=== PATIENT | male | born 1945 | race Caucasian/White ===

== ENCOUNTER 2018-09-20 09:35 | Inpatient (IN) ==
[2018-09-20] MEDS ORDERED: Ipratropium/Albuterol Neb 3 ML IH ONE ×2 (09:58→11:29)
[2018-09-20] MEDS ORDERED: methylPREDNISolone 125 MG/2 ML VIAL IVP ONE (09:58)
--- NOTE | 2018-09-20 10:02 | Emergency Department Note ---
Disposition Clinical Impression: Bronchitis, Hypoxia Disposition: Admitted As Inpatient Condition: Good Time of Disposition: 13:48 General Adult HPI - General Chief complaint: ED Shortness of Breath/Dyspnea Stated complaint: flu sx Time Seen by Provider: 09/20/18 09:48 Source: patient, family Limitations: no limitations Nursing Notes Reviewed: Yes Vital Signs Reviewed: Yes - History of Present Illness HPI Narrative: Male patient presenting to emergency department with a complaint of things he has the flu. States he has not been feeling well for a little over a week. Does have a sick contact of his had the flu recently. States that he had some head congestion and then has had a cough for the past week. States this is generally how his illnesses go however the cough has not subsided so he was c oncerned and came to the emergency department. Patient was found to be tachypneic tachycardic and hypoxic on arrival here. Actions saturation did raise to the low 90s on 2-4 L. Pt is wheezing throughout. States he has not checked his temperature to know has a fever but denies any chills. Denies any chest pain. Reports that they head cold has subsided at this time. Was previously a smoker but has not smoked in several years. Pain Scale: 0 - Related Data Home Medications Medication Instructions Recorded Confirmed Ascorbate Calcium [Vitamin C] 500 mg PO DAILY 09/20/18 09/20/18 Lisinopril [Zestril] 20 mg PO QAM 09/20/18 09/20/18 Multivit-Min/FA/Lycopen/Lutein 1 tab PO DAILY 09/20/18 09/20/18 [Senior Tabs] Naproxen Sodium [Aleve] 440 mg PO QAM 09/20/18 09/20/18 Vitamin E (Dl,Tocopheryl Acet) 400 unit PO DAILY 09/20/18 09/20/18 [Vitamin E] Allergies Allergy/AdvReac Type Severity Reaction Status Date / Time No Known Allergies Allergy Verified 09/20/18 14:26 All systems ED: reviewed and negative except as stated. Review of Systems: As Per HPI Constitutional: Denies: fever, chills Cardiovascular: Denies: chest pain, syncope Respiratory: Reports: cough. Denies: dyspnea Gastrointestinal: Denies: abdominal pain, nausea, vomiting, diarrhea Past Medical History - Past Medical History Attestation: Yes The following information was validated with the patient. Source: patient Medical history: Reports: hypertension Psychiatric history: Reports: no psych history - Social History Smoking Status: Never smoker Smokeless Tobacco Status: No Alcohol use: Reports: none Drug use: Reports: none Physical Exam - General Limitations: no limitations General appearance: alert, in no apparent distress - Head Head exam: atraumatic, normocephalic, normal inspection - Eye Eye exam: Present: normal appearance, PERRL, EOMI - ENT ENT exam: normal exam, normal oropharynx, mucous membranes moist - Neck Neck exam: Present: normal inspection, full ROM, trachea midline - Chest Chest inspection: Present: normal inspection, symmetric chest wall rise - Respiratory Respiratory exam: Present: other (Tachypneic. Shallow breathing. Wheezing throughout.) - Cardiovascular Cardiovascular exam: Present: tachycardia - Abdominal Exam Abdominal exam: Present: soft, Non-Tender. Absent: tenderness, distention, guarding, rebound, rigidity, organomegaly, Sparks's sign, Rovsing's sign, tenderness at McBurney's Point - Extremities Exam Extremities exam: Present: normal inspection, full ROM, normal capillary refill. Absent: tenderness, pedal edema - Back Exam Back exam: Present: normal inspection, full ROM. Absent: tenderness - Neurological Exam Neurological exam: Present: alert, oriented X3 - Psychiatric Psychiatric exam: Present: normal affect, normal mood - Skin Skin exam: Present: warm, dry, intact, normal color. Absent: rash, cyanosis Course Course Narrative: Patient hypoxic on arrival, tachypneic, with sick contacts of life with the flu. We will get a flu swab basic lab work on patient a chest x-ray. Patient overtly denies any shortness of breath. Denies any chest pain. No history of DVT or PE. Patient with diffuse wheezing throughout. We will provide patient with steroids as well as triple DuoNeb. We will also get a cxr.. Patient does have wheezing throughout. We did provide patient with magnesium while here as well as triple DuoNeb and steroids. - Reevaluation(s) Reevaluation #1: Chest x-ray concerning for bronchitis. We did provide patient with antibodies to this time. He is hypoxic while resting. He again overtly denies any chest pain or shortness of breath. We will admit patient to the hospital for his hypoxemia and bronchitis. We did discuss this patient with the hospitalist and will order a d-dimer with them to follow. Patient is agreeable with admission at this time. He again appears well. Vital Signs Temperature 98.9 F 09/20/18 09:43 Pulse Rate 111 09/20/18 09:43 Respiratory Rate 22 09/20/18 09:43 Blood Pressure 149/106 09/20/18 09:43 O2 Sat by Pulse Oximetry 83 09/20/18 09:43 Temperature 98.9 F 09/20/18 09:43 Pulse Rate 100 09/20/18 13:37 Respiratory Rate 19 09/20/18 13:37 Blood Pressure 125/89 09/20/18 13:37 O2 Sat by Pulse Oximetry 93 09/20/18 13:37 Oxygen Delivery Oxygen Delivery Nasal Cannula Medical Decision Making - Medical Records Medical records reviewed: Yes I reviewed the patient's medical records. - Lab Data Lab results reviewed: Yes I reviewed the patient's lab results. Result diagrams: 09/20/18 10:02 09/20/18 10:02 Lab Results 09/20/18 09/20/18 09/20/18 Range/Units 10:02 10:02 10:02 WBC 12.6 H (4.3-11.1) K/mcL RBC 4.24 (4.19-5.50) M/mcL Hgb 13.4 (12.9-16.9) g/dL Hct 41.9 (37.5-50.1) % MCV 98.8 (83.0-100.0) fL MCH 31.6 (28.0-33.3) pg MCHC 32.0 (31.6-35.5) g/dL RDW 15.3 H (11.5-14.5) % Plt Count 387 (140-400) K/mcL MPV 9.2 L (9.4-12.4) fL Immature Gran % 0.6 (0-4) % Seg Neutrophils % 75.3 % Lymphocytes % 14.6 % Monocytes % 7.4 % Eosinophils % 1.7 % Basophils % 0.4 % Neutrophils # 9.5 H (1.6-8.9) K/mcL Lymphocytes # 1.9 (0.6-4.6) K/mcL Monocytes # 0.9 (0.0-1.3) K/mcL Eosinophils # 0.2 (0.0-0.6) K/mcL Basophils # 0.1 (0.0-0.2) K/mcL Sodium 141 (136-145) mEq/L Potassium 4.1 (3.5-5.1) mEq/L Chloride 102 (98-107) mEq/L Carbon Dioxide 34 H (23-29) mEq/L BUN 21 (8-23) mg/dL Creatinine 0.63 L (0.70-1.30) mg/dL Est GFR ( Amer) > 60 (> 60) Est GFR (Non-Af Amer) > 60 (> 60) BUN/Creatinine Ratio 33 H (6-26) Glucose 125 H (70-105) mg/dL Calculated Osmolality 296 (280-300) Lactic Acid 0.7 (0.5-2.2) mmol/L Calcium 9.6 (8.6-10.3) mg/dL Phosphorus 2.2 L (2.7-4.5) mg/dL Magnesium 2.0 (1.6-2.6) mg/dL Troponin I < 0.03 (< 0.04) ng/mL B-Natriuretic Peptide (Less than 100) pg/mL Urine Color (Yellow) Urine Clarity (Clear) Urine pH (5.0-8.0) pH Units Ur Specific [place] (1.010-1.025) Urine Protein (Neg-Trace) mg/dL Urine Glucose (UA) (Normal) mg/dL Urine Ketones (Negative) mg/dL Urine Blood (Negative) Urine Nitrite (Negative) Urine Bilirubin (Negative) Urine Urobilinogen (Normal) mg/dL Ur Leukocyte Esterase (Negative) Ur Culture Indicated? (NO) 09/20/18 09/20/18 Range/Units 10:02 11:58 WBC (4.3-11.1) K/mcL RBC (4.19-5.50) M/mcL Hgb (12.9-16.9) g/dL Hct (37.5-50.1) % MCV (83.0-100.0) fL MCH (28.0-33.3) pg MCHC (31.6-35.5) g/dL RDW (11.5-14.5) % Plt Count (140-400) K/mcL MPV (9.4-12.4) fL Immature Gran % (0-4) % Seg Neutrophils % % Lymphocytes % % Monocytes % % Eosinophils % % Basophils % % Neutrophils # (1.6-8.9) K/mcL Lymphocytes # (0.6-4.6) K/mcL Monocytes # (0.0-1.3) K/mcL Eosinophils # (0.0-0.6) K/mcL Basophils # (0.0-0.2) K/mcL Sodium (136-145) mEq/L Potassium (3.5-5.1) mEq/L Chloride (98-107) mEq/L Carbon Dioxide (23-29) mEq/L BUN (8-23) mg/dL Creatinine (0.70-1.30) mg/dL Est GFR ( Amer) (> 60) Est GFR (Non-Af Amer) (> 60) BUN/Creatinine Ratio (6-26) Glucose (70-105) mg/dL Calculated Osmolality (280-300) Lactic Acid (0.5-2.2) mmol/L Calcium (8.6-10.3) mg/dL Phosphorus (2.7-4.5) mg/dL Magnesium (1.6-2.6) mg/dL Troponin I (< 0.04) ng/mL B-Natriuretic Peptide 37 (Less than 100) pg/mL Urine Color Yellow (Yellow) Urine Clarity Clear (Clear) Urine pH 7.0 (5.0-8.0) pH Units Ur Specific [place] 1.017 (1.010-1.025) Urine Protein Trace (Neg-Trace) mg/dL Urine Glucose (UA) Normal (Normal) mg/dL Urine Ketones Negative (Negative) mg/dL Urine Blood Negative (Negative) Urine Nitrite Negative (Negative) Urine Bilirubin Negative (Negative) Urine Urobilinogen Normal (Normal) mg/dL Ur Leukocyte Esterase Negative (Negative) Ur Culture Indicated? NO (NO) - Radiology Data Radiology results reviewed: Yes I reviewed the patient's radiology results. Chest X-Ray 09/20/18 09:49 IMPRESSION: Bronchial wall thickening bilaterally, greatest at the bases. Consider bronchitis. Follow-up to resolution. D/ / Eliazar Medel MD / Eliazar Medel MD Interpreting Provider: Eliazar Medel MD - EKG Data EKG #1 EKG attestation: Yes I reviewed and interpreted this EKG. EKG results narrative: Sinus tachycardia at a rate of 103. ND interval is 184. QRS duration is 95. QT is 328. QTC is 4:30. Good R-wave progression. No signs of acute ischemia. The sensitivity of your chronic. Attestation Statement - Attestation Attestation: I, Lon Colon, examined this patient and my medical decision-making was reviewed with the [employer]/PA/Advanced Practice Nurse/Resident Physician. I agree with the documented findings, disposition and treatment plan as described except to the extent set forth below. 72-year-old male presents emergency Department with concerns of generalized malaise, weakness, fatigue. Patient noted that he was hypoxic at home. He is hypoxic in triage. If this improved with nasal cannula oxygen supplementation in the emergency department. He has a history of COPD. He states he had a viral upper respiratory infection within the past few weeks and he had progressively worsened with this dyspnea. Patient denies fever over the past 24-48 hours. He has not taken Tylenol or ibuprofen prior to arrival to the emergency department. Chest x-ray does not show evidence of acute infiltrate. Patient has wheezing the bilateral posterior lung talbot. He did improve mildly with 2 nebs emergency department. EKG did not show evidence of STEMI. I reviewed the EKG with the resident and agree with the interpretation. Patient will be admitted to the hospitalist for further care and evaluation secondary to his hypoxia and likely COPD exacerbation versus bronchitis.
[2018-09-20] MEDS ORDERED: Azithromycin 500 MG in D5% in Water 250 ML IVPB ONE (10:04)
[2018-09-20] MEDS ORDERED: cefTRIAXone 1,000 MG in Water for inj. (sterile) 10 ML IVP ONE (10:04)
[2018-09-20] MEDS ORDERED: 0.9 % Sodium Chloride 500 ML IVC ONE (10:06)
[2018-09-20 10:15] LABS: Basophils # 0.1 K/mcL (0.0-0.2); Basophils % 0.4 %; Eosinophils # 0.2 K/mcL (0.0-0.6); Eosinophils % 1.7 %; Hematocrit 41.9 % (37.5-50.1); Hemoglobin 13.4 g/dL (12.9-16.9); Immature Granulocytes % 0.6 % (0-4); Lymphocytes # 1.9 K/mcL (0.6-4.6); Lymphocytes % 14.6 %; Mean Corpuscular Hemoglobin 31.6 pg (28.0-33.3); Mean Corpuscular Volume 98.8 fL (83.0-100.0); Mean Platelet Volume 9.2 fL (9.4-12.4); Monocytes # 0.9 K/mcL (0.0-1.3); Monocytes % 7.4 %; Neutrophils # 9.5 K/mcL (1.6-8.9); Platelet Count 387 K/mcL (140-400); Red Blood Count 4.24 M/mcL (4.19-5.50); Red Cell Distribution Width 15.3 % (11.5-14.5); Segmented Neutrophils % 75.3 %; White Blood Count 12.6 K/mcL (4.3-11.1)
[2018-09-20] MEDS: 0.9 % Sodium Chloride 1,000 ML IVC SCH ×2 (10:25→11:25)
[2018-09-20 10:36] LABS: BUN/Creatinine Ratio 33 (6-26); Blood Urea Nitrogen 21 mg/dL (8-23); Calcium 9.6 mg/dL (8.6-10.3); Carbon Dioxide 34 mEq/L (23-29); Chloride 102 mEq/L (98-107); Glucose 125 mg/dL (70-105); Osmolality,Calculated 296 (280-300); Phosphorous 2.2 mg/dL (2.7-4.5); Potassium 4.1 mEq/L (3.5-5.1); Sodium 141 mEq/L (136-145); eGFR For African Americans > 60 (> 60); eGFR For Non-African Americans > 60 (> 60)
[2018-09-20 10:37] LABS: Troponin I < 0.03 ng/mL (< 0.04)
[2018-09-20 12:44] LABS: Bilirubin,Urine Negative (Negative); Blood,Urine Negative (Negative); Clarity,Urine Clear (Clear); Color,Urine Yellow (Yellow); Glucose,Urine (UA) Normal (Normal); Ketones,Urine Negative (Negative); Leukocyte Esterase,Urine Negative (Negative); Nitrite,Urine Negative (Negative); Protein,Urine Trace mg/dL (Neg-Trace); Specific Gravity,Urine 1.017 (1.010-1.025); Urobilinogen,Urine Normal (Normal)
[2018-09-20] MEDS ORDERED: Isovue-370 500 ML BOTTLE IVP ONE (14:50)
--- NOTE | 2018-09-20 14:55 | Internal Med History&Physical ---
<MacariodgJesus Manuelirma - Last Filed: 09/20/18 15:31> Date of Encounter: 09/20/18 Time of Encounter: 14:53 Internal Medicine - H&P: HPI Chief complaint: shortness of breath Admitted From: Emergency Dept Plans for Post Hospital Care: Home History of present illness: Mr. Trejo is a 72 year old male with PMHx of HTN. History was obtained from patient and his family (daughter in law). He does not have a family doctor and is non compliant with seeing a family doctor. He used to be on home oxygen but had it taken away by medicare due to noncompliance with it. He has 80 pack year smoking history and quit about 3 years ago. He was never diagnosed with COPD in the past, however, because he never goes to the doctor. He has family history of emphysema. Patient has baseline shortness of breath with minimal exertion that is present all the time. Over the past week, his shortness of breath has increased more than normal. His lives in a long-term permanently for dementia and was recently diagnosed with pneumonia. He recently did go to visit his in the long-term. He states that he was checking his oxygen saturations at home and it was high 80s-low 90s. he denies nausea, vomiting, diarrhea, fevers, chills, chest pain, hematochezia, melena, hematuria. he denies pleuritic chest pain, long travel, long plane or car rides. he denies history of malignancy. Per daughter in law, patient has long history of non compliance with going to see the doctor, and non compliance with his home oxygen use, which has been taken away from him. Past Med Surg Social Fam HX - Past Medical History Medical history: hypertension Psychiatric history: no psych history - Social History Smoking Status: Never smoker Smokeless Tobacco Status: No Alcohol use: none Drug use: none - Family History Father Living Status: Age at : 68 Cause of : cancer Hx Family Respiratory Disorders: Yes Hx Family Cancer: Yes Internal Medicine - H&P: Meds Ascorbate Calcium [Vitamin C] 500 mg PO DAILY 09/20/18 [History] Lisinopril [Zestril] 20 mg PO QAM 09/20/18 [History] Multivit-Min/FA/Lycopen/Lutein [Senior Tabs] 1 tab PO DAILY 09/20/18 [History] Naproxen Sodium [Aleve] 440 mg PO QAM 09/20/18 [History] Vitamin E (Dl,Tocopheryl Acet) [Vitamin E] 400 unit PO DAILY 09/20/18 [History] Allergy/AdvReac Type Severity Reaction Status Date / Time No Known Allergies Allergy Verified 09/20/18 14:26 All Systems PM: A 10-system review of systems was performed and is negative for pertinent findings except as documented above in the HPI. - Constitutional Constitutional: as per HPI - EENT Eyes: as per HPI Ears: as per HPI Nose, mouth and throat: as per HPI - Breasts Breasts: as per HPI - Cardiovascular Cardiovascular ROS IM: as per HPI - Respiratory Respiratory: as per HPI - Gastrointestinal Gastrointestinal: as per HPI - Genitourinary Genitourinary ROS male: as per HPI - Musculoskeletal Musculoskeletal ROS IM: as per HPI - Integumentary Integumentary IM: as per HPI - Neurological Neurological ROS: as per HPI - Psychiatric Psychiatric: as per HPI - Endocrine Endocrine IM: as per HPI - Hematologic/Lymphatic Hematologic/Lymphatic: as per HPI - Allergic/Immunologic Allergic/Immunologic: as per HPI - Constitutional Vitals: Temp Pulse Resp BP Pulse Ox 98.9 F 100 19 125/89 93 09/20/18 09:43 09/20/18 13:37 09/20/18 13:37 09/20/18 13:37 09/20/18 13:37 General appearance: Present: A&O X 3, no acute distress, answers questions appropriately Exam: alert and oriented x3, pleasant, no acute distress - Head Head exam: Present: atraumatic, normocephalic - Neck Neck exam general surgery: Present: supple, trachea midline - Respiratory Additional comments: overall decreased breath sounds with wheezing present. - Cardiovascular Cardiovascular exam: Present: RRR, +S1, +S2. Absent: gallop, rubs, systolic murmur - GI/Abdominal GI/Abdominal exam: Present: normal bowel sounds, soft. Absent: distended, tenderness - Extremities Exam Extremities exam: Absent: cyanotic, pedal edema - Neurological Exam Neurological exam: Present: alert, oriented X3, no focal deficits - Psychiatric Psychiatric exam: Present: normal affect, normal mood - Skin Skin exam: Present: intact Internal Med - H&P Results - Labs CBC & Chem 7: 09/20/18 10:02 09/20/18 10:02 Labs: Short CBC 09/20/18 Range/Units 10:02 WBC 12.6 H (4.3-11.1) K/mcL Hgb 13.4 (12.9-16.9) g/dL Hct 41.9 (37.5-50.1) % Plt Count 387 (140-400) K/mcL Neutrophils # 9.5 H (1.6-8.9) K/mcL BMP 09/20/18 10:02 Sodium 141 Potassium 4.1 Chloride 102 Carbon Dioxide 34 H BUN 21 Creatinine 0.63 L Glucose 125 H Calcium 9.6 Cardiac Enzymes 09/20/18 Range/Units 10:02 Troponin I < 0.03 (< 0.04) ng/mL Urine 09/20/18 Range/Units 11:58 Urine Color Yellow (Yellow) Urine Clarity Clear (Clear) Urine pH 7.0 (5.0-8.0) pH Units Ur Specific [place] 1.017 (1.010-1.025) Urine Protein Trace (Neg-Trace) mg/dL Urine Glucose (UA) Normal (Normal) mg/dL - Impressions ITS Impressions Chest X-Ray 09/20/18 09:49 IMPRESSION: Bronchial wall thickening bilaterally, greatest at the bases. Consider bronchitis. Follow-up to resolution. D/ / Eliazar Medel MD / Eliazar Medel MD Interpreting Provider: Eliazar Medel MD - Assessment and Plan (1) COPD exacerbation Current Visit: Yes Status: Acute Assessment and plan: 72M with history of 80 pack year tobacco use, quit smoking a few years ago. does not have family doc. was on oxygen in the past but had it taken away due to non compliance. Has extensive history of baseline shortness of breath with minimal exertion that has increased. visited in long-term recently, who was diagnosed with pneumonia. CXR significant for bronchitis. CXR shows increased lung volumes-suspect obstructive process. Plan: will treat as COPD exacerbation scheduled DuoNebs azithromycin day 1 methylprednisolone (2) Bronchitis Current Visit: Yes Status: Acute Assessment and plan: plan as above (3) Hypoxia Current Visit: Yes Status: Acute Assessment and plan: plan as above (4) Hypertension Current Visit: Yes Status: Acute Assessment and plan: continue lisinopril Qualifiers: Hypertension type: essential hypertension Qualified Code(s): I10 - Essential (primary) hypertension (5) DVT prophylaxis Current Visit: Yes Status: Acute Assessment and plan: heparin SQ - Time Spent With Patient Total time spent is greater than 50% in coordination of care (as documented) at patient's floor/unit and/or counseling patient: <Karen Sandoval - Last Filed: 09/21/18 11:49> Date of Encounter: 09/20/18 Internal Medicine - H&P: HPI History of present illness: Mr. Trejo is a 72 year old male All Systems PM: A 10-system review of systems was performed and is negative for pertinent findings except as documented above in the HPI. - Constitutional Vitals: Temp Pulse Resp BP Pulse Ox 97.8 F 97 14 116/73 89 09/21/18 11:17 09/21/18 11:17 09/21/18 11:17 09/21/18 11:17 09/21/18 11:17 Internal Med - H&P Results - Labs CBC & Chem 7: 09/21/18 04:58 09/21/18 04:58 Labs: Short CBC 09/21/18 Range/Units 04:58 WBC 11.5 H (4.3-11.1) K/mcL Hgb 11.6 L D (12.9-16.9) g/dL Hct 36.0 L (37.5-50.1) % Plt Count 358 (140-400) K/mcL Neutrophils # 10.2 H (1.6-8.9) K/mcL BMP 09/21/18 04:58 Sodium 142 Potassium 4.3 Chloride 102 Carbon Dioxide 31 H BUN 23 Creatinine 0.61 L Glucose 171 H Calcium 8.9 Urine 09/20/18 Range/Units 11:58 Urine Color Yellow (Yellow) Urine Clarity Clear (Clear) Urine pH 7.0 (5.0-8.0) pH Units Ur Specific [place] 1.017 (1.010-1.025) Urine Protein Trace (Neg-Trace) mg/dL Urine Glucose (UA) Normal (Normal) mg/dL - Impressions ITS Impressions Chest X-Ray 09/20/18 09:49 IMPRESSION: Bronchial wall thickening bilaterally, greatest at the bases. Consider bronchitis. Follow-up to resolution. D/ / Eliazar Medel MD / Eliazar Medel MD Interpreting Provider: Eliazar Medel MD Chest CTA 09/20/18 14:50 IMPRESSION: No evidence of pulmonary embolism. Small to moderate areas of pneumonia in the posterior segment of the right upper lobe and posterior base of the right lower lobe. Mild emphysematous changes. [id number] bronchial wall thickening consistent with acute or chronic bronchitis. No finding worrisome for malignancy seen. D/ / Dimitry Butts MD / Dimitry Butts MD Interpreting Provider: Dimitry Butts MD - Time Spent With Patient Total time spent is greater than 50% in coordination of care (as documented) at patient's floor/unit and/or counseling patient: - Attending Attestation I have personally seen, examined, and been fully involved in the management of this patient with the resident. I confirm the history, exam, assessment, and plan discussed with the resident.
[2018-09-20] MEDS ORDERED: Naloxone 0.4 MG/ML INJ IVP PRN (15:33)
[2018-09-20] MEDS ORDERED: Acetaminophen 325 MG TABLET PO PRN (15:33)
[2018-09-20] MEDS ORDERED: Ondansetron 4 MG/2 ML VIAL IVP PRN (15:33)
[2018-09-20] MEDS: Ipratropium/Albuterol Neb 3 ML IH SCH ×3 (16:24→23:24)
[2018-09-20] MEDS: methylPREDNISolone 125 MG/2 ML VIAL IVP SCH ×2 (18:05→22:57)
[2018-09-20] MEDS: *HR* Heparin 5,000 UNIT/ML VIAL SQ SCH (18:06)
[2018-09-21] MEDS: Ipratropium/Albuterol Neb 3 ML IH SCH ×6 (03:53→23:21)
[2018-09-21] MEDS: *HR* Heparin 5,000 UNIT/ML VIAL SQ SCH ×2 (05:06→16:48)
[2018-09-21 05:24] LABS: Basophils % 0.1 %; Immature Granulocytes % 0.4 % (0-4); Lymphocytes % 8.9 %; Mean Corpuscular HGB Conc 32.2 g/dL (31.6-35.5); Mean Corpuscular Hemoglobin 32.3 pg (28.0-33.3); Mean Corpuscular Volume 100.3 fL (83.0-100.0); Mean Platelet Volume 9.3 fL (9.4-12.4); Monocytes # 0.3 K/mcL (0.0-1.3); Monocytes % 2.2 %; Neutrophils # 10.2 K/mcL (1.6-8.9); Platelet Count 358 K/mcL (140-400); Red Blood Count 3.59 M/mcL (4.19-5.50); Red Cell Distribution Width 15.5 % (11.5-14.5); Segmented Neutrophils % 88.4 %; White Blood Count 11.5 K/mcL (4.3-11.1)
[2018-09-21 05:25] LABS: Hemoglobin 11.6 g/dL (12.9-16.9)
[2018-09-21 05:50] LABS: BUN/Creatinine Ratio 38 (6-26); Blood Urea Nitrogen 23 mg/dL (8-23); Calcium 8.9 mg/dL (8.6-10.3); Carbon Dioxide 31 mEq/L (23-29); Chloride 102 mEq/L (98-107); Glucose 171 mg/dL (70-105); Magnesium 2.3 mg/dL (1.6-2.6); Osmolality,Calculated 302 (280-300); Phosphorous 2.6 mg/dL (2.7-4.5); Potassium 4.3 mEq/L (3.5-5.1); Sodium 142 mEq/L (136-145); eGFR For African Americans > 60 (> 60); eGFR For Non-African Americans > 60 (> 60)
[2018-09-21] MEDS: cefTRIAXone 1,000 MG in Water for inj. (sterile) 10 ML IVPB SCH (09:29)
[2018-09-21] MEDS: methylPREDNISolone 125 MG/2 ML VIAL IVP SCH ×3 (09:30→19:15)
[2018-09-21] MEDS: Azithromycin 500 MG in D5% in Water 250 ML IVPB SCH (09:30)
--- NOTE | 2018-09-21 14:21 | Internal Med Progress Note ---
Hospitalist Progress Note - Encounter Date of Encounter: 09/21/18 Time of Encounter: 09:20 - Subjective Interval History: When seen today patient was resting comfortably in his bed. He says his breathing is considerably improved from admission time. Denies any chest pain. Denies any cough or fever. Denies any lower extremity swelling. Denies any abd ominal pain, nausea, or vomiting. - Exam Vitals: Temp Pulse Resp BP Pulse Ox 97.8 F 97 14 116/73 89 09/21/18 11:17 09/21/18 11:17 09/21/18 11:17 09/21/18 11:17 09/21/18 11:17 Exam: GENERAL APPEARANCE: Well developed, well nourished, alert and cooperative, and appears to be in no acute distress. HEAD: normocephalic. EYES: vision is grossly intact. EARS: hearing grossly intact. NOSE: No nasal discharge. THROAT: Oral cavity and pharynx normal. No inflammation, swelling, exudate, or lesions. NECK: Neck supple, non-tender without lymphadenopathy, masses or thyromegaly. CARDIAC: Normal S1 and S2. No S3, S4 or murmurs. Rhythm is regular. There is no peripheral edema, cyanosis or pallor. Extremities are warm and well perfused. Capillary refill is less than 2 seconds. No carotid bruits. LUNGS: Clear to auscultation and percussion without rales, rhonchi, wheezing or diminished breath sounds. ABDOMEN: Positive bowel sounds. Soft, nondistended, nontender. No guarding or rebound. No masses. MUSKULOSKELETAL: Adequately aligned spine. ROM intact spine and extremities. No joint erythema or tenderness. Normal muscular development. BACK: Examination of the spine reveals normal gait and posture, no spinal deformity, symmetry of spinal muscles, without tenderness, decreased range of m otion or muscular spasm. EXTREMITIES: No significant deformity or joint abnormality. No edema. Peripheral pulses intact. No varicosities. LOWER EXTREMITY: Examination of both feet reveals all toes to be normal in size and symmetry, normal range of motion, normal sensation with distal capillary filling of less than 2 seconds without tenderness, swelling, discoloration, nodules, weakness or deformity. SKIN: Skin normal color, texture and turgor with no lesions or eruptions. PSYCHIATRIC: The mental examination revealed the patient was oriented to person, place, and time. - Assessment and Plan (1) CAP (community acquired pneumonia) Current Visit: Yes Status: Acute Assessment and Plan: Complain of shortness of breath upon arrival. Admits to sick contact in who is currently diagnosed with pneumonia. Chest x-ray revealed bronchial wall thickening bilaterally which were more pronounced at the bases. Chest CTA did not reveal any pulmonary embolism however showed signs of pneumonia in the right upper lobe in the right lower lobe. Blood cultures were taken. Patient was subsequently started on azithromycin and Rocephin. White blood cell count has been downtrending since admission, currently at 11.5. Patient has been afebrile. Vital signs stable. Plan: - C/W day #2 of Azithromycin. - C/W day #2 of Rocephin. - Blood cultures pending. - Continue to monitor vitals. - Supplemental O2. (2) COPD exacerbation Current Visit: Yes Status: Acute Assessment and Plan: 80 pack year tobacco use, quit smoking a few years ago. Was on oxygen in the past but had it taken away due to non compliance. Has extensive history of baseline shortness of breath with minimal exertion that has increased. CXR significant for bronchitis. Chest CTA showed evidence of PNA in R lung. Plan: - scheduled DuoNebs - azithromycin day 2 - methylprednisolone day - suplemental O2. (3) Hypoxia Current Visit: Yes Status: Acute Assessment and Plan: Due to PNA and COPD exacerbation. O2 level currently at acceptable range for COPD patient. Plan: - C/W duonebs. - C/W antibiotics. - C/W IV steroids. - C/W O2 supplement. (4) Hypertension Current Visit: Yes Status: Acute Assessment and Plan: BP controlled. Plan: - C/W lisinopril. DVT Prophylaxis: Heparin SQ. - Time Spent with Patient Total time spent is greater than 50% in coordination of care (as documented) at patient's floor/unit and/or counseling patient: Internal Medicine: Result - Labs CBC & Chem 7: 09/21/18 04:58 09/21/18 04:58 Labs: Short CBC 09/21/18 Range/Units 04:58 WBC 11.5 H (4.3-11.1) K/mcL Hgb 11.6 L D (12.9-16.9) g/dL Hct 36.0 L (37.5-50.1) % Plt Count 358 (140-400) K/mcL Neutrophils # 10.2 H (1.6-8.9) K/mcL BMP 09/21/18 04:58 Sodium 142 Potassium 4.3 Chloride 102 Carbon Dioxide 31 H BUN 23 Creatinine 0.61 L Glucose 171 H Calcium 8.9 - ABG Interpretation ABG results: PT/INR, D-dimer 1146 ng/mLFEU (0-500) H 09/20/18 14:11 - Impressions Impressions Chest CTA 09/20/18 14:50 IMPRESSION: No evidence of pulmonary embolism. Small to moderate areas of pneumonia in the posterior segment of the right upper lobe and posterior base of the right lower lobe. Mild emphysematous changes. [id number] bronchial wall thickening consistent with acute or chronic bronchitis. No finding worrisome for malignancy seen. D/ / Dimitry Butts MD / Dimitry Butts MD Interpreting Provider: Dimitry Butts MD Consult Discharge Plan - Plan Referrals: Tatiana Ward, [employer] [Primary Care Provider] - (4) Hypertension Qualifiers: Hypertension type: essential hypertension Qualified Code(s): I10 - Essential (primary) hypertension
[2018-09-22] MEDS: Ipratropium/Albuterol Neb 3 ML IH SCH ×6 (03:59→23:45)
[2018-09-22] MEDS: *HR* Heparin 5,000 UNIT/ML VIAL SQ SCH ×2 (05:09→16:59)
[2018-09-22] MEDS: methylPREDNISolone 125 MG/2 ML VIAL IVP SCH ×2 (05:09→17:00)
[2018-09-22 06:14] LABS: Hematocrit 38.6 % (37.5-50.1); Mean Corpuscular HGB Conc 31.1 g/dL (31.6-35.5); Mean Corpuscular Hemoglobin 31.3 pg (28.0-33.3); Mean Corpuscular Volume 100.8 fL (83.0-100.0); Mean Platelet Volume 9.4 fL (9.4-12.4); Platelet Count 443 K/mcL (140-400); Red Blood Count 3.83 M/mcL (4.19-5.50); Red Cell Distribution Width 15.8 % (11.5-14.5); White Blood Count 14.4 K/mcL (4.3-11.1)
[2018-09-22 06:34] LABS: BUN/Creatinine Ratio 45 (6-26); Blood Urea Nitrogen 36 mg/dL (8-23); Calcium 9.3 mg/dL (8.6-10.3); Carbon Dioxide 35 mEq/L (23-29); Chloride 101 mEq/L (98-107); Glucose 110 mg/dL (70-105); Magnesium 2.2 mg/dL (1.6-2.6); Osmolality,Calculated 307 (280-300); Potassium 4.1 mEq/L (3.5-5.1); Sodium 144 mEq/L (136-145); eGFR For African Americans > 60 (> 60); eGFR For Non-African Americans > 60 (> 60)
[2018-09-22] MEDS: Lisinopril 20 MG TABLET PO SCH (11:03)
[2018-09-22] MEDS: Azithromycin 500 MG in D5% in Water 250 ML IVPB SCH (11:19)
--- NOTE | 2018-09-22 11:48 | Internal Med Progress Note ---
<Reba Berg - Last Filed: 09/22/18 17:22> Hospitalist Progress Note - Encounter Date of Encounter: 09/22/18 Time of Encounter: 10:00 - Subjective Interval History: Sitting in bedside chair, eating breakfast. Pt feels better overall, cough is at baseline. Feels his breathing has improved since he presented, supplemental oxy gen has been helpful. He denies chest pain, heart palpitations, abdominal pain, fevers, chills, nausea, vomiting. Still reporting some weakness and is interested in going to inpatient rehab or swing bed on discharge to get stronger. - Exam Vitals: Temp Pulse Resp BP Pulse Ox 98.3 F 96 16 135/82 92 09/22/18 07:34 09/22/18 07:34 09/22/18 11:22 09/22/18 07:34 09/22/18 11:22 Exam: General: No acute distress, seated comfortably at bedside HEENT: head normocephalic/atraumatic, EOMI, PERRL, sclera anicteric Neck: Supple Cardio: regular rhythm, mild tachycardia, no murmurs, +S1/S2 Pulm: CTAB, diminished breath sounds bilaterally, no wheezing/rhonchi/rales. Normal respiratory effort, on 3.5L NC Abdomen: soft, nontender, active bowel sounds Extremities: No LE edema, no cyanosis, no clubbing Neuro: AAOx3, no focal deficits, no speech deficit, CN II-XII grossly intact, moves all extremities spontaneously MSK: Strength 5/5 throughout, no visible deformities, no joint swelling Skin: clean, dry, intact, no visible rashes Psych: Appropriate mood and affect - Assessment and Plan (1) CAP (community acquired pneumonia) Current Visit: Yes Status: Acute Assessment and Plan: Improving. Afebrile since admission. Increase in WBC attributed to IV steroids. CXR shows bronchial wall thickening bilaterally, especially at bases--likely represents bronchitis. CTA chest shows small to moderate areas of pneumonia in right upper lobe and lower lobe; mild to moderate bronchial wall thickening again noted; no evidence for PE Influenza A/B negative Sputum culture pending collection BCx show NGTD Continue azithromycin and Rocephin, anticipate transitioning to PO abx tomorrow Anticipate pt will continue to improve as PNA resolves Last dose solumedrol tonight, transition to PO prednisone in morning Continue supplemental oxygen, scheduled duonebs (2) Acute and chronic respiratory failure with hypoxia Current Visit: Yes Status: Acute Assessment and Plan: Acute on chronic resiratory failure with hypoxia secondary to PNA in setting of COPD with exacerbation. Requiring 3.5L oxygen by NC, maintaining adequate SpO2 low 90's. 6 minute walk test for O2 qualification. Continue supplemental oxygen, continue scheduled duonebs. (3) COPD exacerbation Current Visit: Yes Status: Acute Assessment and Plan: As above. Previously prescribed home O2, but was discontinued d/t noncompliance. No home bronchodilators or maintenance inhalers, pt would benefit from these and will prescribe on discharge. (4) Hypertension Current Visit: Yes Status: Acute Assessment and Plan: Well controlled on home dose lisinopril. - Time Spent with Patient Total time spent is greater than 50% in coordination of care (as documented) at patient's floor/unit and/or counseling patient: Internal Medicine: Result - Labs CBC & Chem 7: 09/22/18 05:01 09/22/18 05:01 Labs: Short CBC 09/22/18 Range/Units 05:01 WBC 14.4 H (4.3-11.1) K/mcL Hgb 12.0 L (12.9-16.9) g/dL Hct 38.6 (37.5-50.1) % Plt Count 443 H (140-400) K/mcL BMP 09/22/18 05:01 Sodium 144 Potassium 4.1 Chloride 101 Carbon Dioxide 35 H BUN 36 H Creatinine 0.80 Glucose 110 H Calcium 9.3 - ABG Interpretation ABG results: PT/INR, D-dimer 1146 ng/mLFEU (0-500) H 09/20/18 14:11 Consult Discharge Plan - Plan Referrals: Tatiana Ward, [employer] [Primary Care Provider] - <Peter Nuñez - Last Filed: 09/22/18 18:15> Hospitalist Progress Note - Encounter Date of Encounter: 09/22/18 - Exam Vitals: Temp Pulse Resp BP Pulse Ox 98.2 F 105 15 102/69 93 09/22/18 17:22 09/22/18 17:22 09/22/18 17:22 09/22/18 17:22 09/22/18 17:22 - Time Spent with Patient Total time spent is greater than 50% in coordination of care (as documented) at patient's floor/unit and/or counseling patient: Internal Medicine: Result - Labs CBC & Chem 7: 09/22/18 05:01 09/22/18 05:01 Labs: Short CBC 09/22/18 Range/Units 05:01 WBC 14.4 H (4.3-11.1) K/mcL Hgb 12.0 L (12.9-16.9) g/dL Hct 38.6 (37.5-50.1) % Plt Count 443 H (140-400) K/mcL BMP 09/22/18 05:01 Sodium 144 Potassium 4.1 Chloride 101 Carbon Dioxide 35 H BUN 36 H Creatinine 0.80 Glucose 110 H Calcium 9.3 - ABG Interpretation ABG results: PT/INR, D-dimer 1146 ng/mLFEU (0-500) H 09/20/18 14:11 - Attending Attestation I examined this patient and my medical decision-making was reviewed with the Resident Physician. I agree with the documented findings, disposition and treatment plan as described except to the extent set forth below. Patient seen and examined at bedside. Patient reports that he feels extremely weak today. He feels like his breathing is improving. On exam lungs are diminished bilaterally but no rales, wheezes appreciated. Acute respiratory failure with hypoxia: Patient does not require oxygen normally at home. Continue oxygen supplementation and wean down as tolerated. Pneumonia: Treating for community-acquired pneumonia, appears to be covering well, continue ceftriaxone and azithromycin. COPD exacerbation: Transition to by mouth steroids tomorrow. <Reba Berg - Last Filed: 09/22/18 17:22> (1) CAP (community acquired pneumonia) Qualifiers: Laterality: right Lung location: upper lobe of lung Qualified Code(s): J18.1 - Lobar pneumonia, unspecified organism (4) Hypertension Qualifiers: Hypertension type: essential hypertension Qualified Code(s): I10 - Essential (primary) hypertension
[2018-09-22] MEDS: cefTRIAXone 1,000 MG in Water for inj. (sterile) 10 ML IVPB SCH (12:08)
--- NOTE | 2018-09-22 12:40 | Electrocardiograph Report ---
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
[2018-09-23] MEDS: Ipratropium/Albuterol Neb 3 ML IH SCH ×6 (03:53→23:08)
[2018-09-23] MEDS: *HR* Heparin 5,000 UNIT/ML VIAL SQ SCH ×2 (06:33→17:44)
[2018-09-23 06:49] LABS: Basophils % 0.1 %; Hematocrit 38.3 % (37.5-50.1); Hemoglobin 12.4 g/dL (12.9-16.9); Immature Granulocytes % 0.8 % (0-4); Lymphocytes # 1.4 K/mcL (0.6-4.6); Lymphocytes % 11.3 %; Mean Corpuscular HGB Conc 32.4 g/dL (31.6-35.5); Mean Corpuscular Hemoglobin 32.8 pg (28.0-33.3); Mean Corpuscular Volume 101.3 fL (83.0-100.0); Mean Platelet Volume 9.3 fL (9.4-12.4); Monocytes % 8.3 %; Neutrophils # 9.9 K/mcL (1.6-8.9); Platelet Count 474 K/mcL (140-400); Red Blood Count 3.78 M/mcL (4.19-5.50); Red Cell Distribution Width 15.6 % (11.5-14.5); Segmented Neutrophils % 79.5 %; White Blood Count 12.5 K/mcL (4.3-11.1)
[2018-09-23 07:02] LABS: BUN/Creatinine Ratio 47 (6-26); Blood Urea Nitrogen 34 mg/dL (8-23); Calcium 9.5 mg/dL (8.6-10.3); Carbon Dioxide 37 mEq/L (23-29); Chloride 100 mEq/L (98-107); Glucose 100 mg/dL (70-105); Osmolality,Calculated 304 (280-300); Potassium 4.7 mEq/L (3.5-5.1); Sodium 143 mEq/L (136-145); eGFR For African Americans > 60 (> 60); eGFR For Non-African Americans > 60 (> 60)
--- NOTE | 2018-09-23 07:37 | Internal Med Progress Note ---
<Peter Nuñez - Last Filed: 09/23/18 14:35> Date of Encounter: 09/23/18 - Constitutional Vitals: Temp Pulse Resp BP Pulse Ox 97.6 F 66 16 119/79 94 09/23/18 12:04 09/23/18 12:04 09/23/18 12:04 09/23/18 12:04 09/23/18 12:04 Internal Medicine: Result - Labs CBC & Chem 7: 09/23/18 05:54 09/23/18 05:54 Labs: Short CBC 09/23/18 Range/Units 05:54 WBC 12.5 H (4.3-11.1) K/mcL Hgb 12.4 L (12.9-16.9) g/dL Hct 38.3 (37.5-50.1) % Plt Count 474 H (140-400) K/mcL Neutrophils # 9.9 H (1.6-8.9) K/mcL BMP 09/23/18 05:54 Sodium 143 Potassium 4.7 Chloride 100 Carbon Dioxide 37 H BUN 34 H Creatinine 0.72 Glucose 100 Calcium 9.5 - ABG Interpretation ABG results: PT/INR, D-dimer 1146 ng/mLFEU (0-500) H 09/20/18 14:11 Consult Discharge Plan - Plan Referrals: Tatiana Ward CNP [Primary Care Provider] - - Attending Attestation I examined this patient and my medical decision-making was reviewed with the Resident Physician. I agree with the documented findings, disposition and treatment plan as described except to the extent set forth below. Patient seen and examined at bedside. Patient states that his breathing feels better, he denies any shortness of breath. He does report a heaviness feeling i n his hands and feet bilaterally with some numbness. He states this is new since admission. On exam lungs are diminished bilaterally but no rales, wheezes appreciated. Strength is 5 out of 5 in the upper extremities and lower extremities bilaterally. Sensation is mildly diminished. Acute respiratory failure with hypoxia: Patient does not require oxygen at home. Continue oxygen supplementation and wean down as tolerated. Pneumonia: Treating for community-acquired pneumonia, appears to be covering well, transition to by mouth Levaquin to complete 5 days of treatment COPD exacerbation: Transition to by mouth steroids today to treat a total of 5 days. Extremity numbness and tingling: May be side effect of medications, will change antibiotic regimen and switch to by mouth steroids which will be completed in the next 2 days. Discussed this with patient. <Sina Mendez - Last Filed: 09/23/18 15:05> Date of Encounter: 09/23/18 Time of Encounter: 09:00 - Assessment and plan (1) CAP (community acquired pneumonia) Current Visit: Yes Status: Acute Assessment and plan: Complaint of shortness of breath upon arrival. Admits to sick contact in who is currently diagnosed with pneumonia. Chest x-ray revealed bronchial wall thickening bilaterally which were more pronounced at the bases. Chest CTA did not reveal any pulmonary embolism however showed signs of pneumonia in the right upper lobe in the right lower lobe. Blood cultures were taken. Patient was subsequently started on azithromycin and Rocephin. White blood cell count has been downtrending since admission, currently Patient has been afebrile. Vital signs stable. Influenza A/B negative. Sputum culture pending collection BCx show NGTD. Switched rocephin and azithromycin to levaquin. Plan: - C/W day #2 of levaquin. - Blood cultures pending. - Continue to monitor vitals. - Supplemental O2. - Awaiting placement at [facility]. Plan for discharge tomorrow. Qualifiers: Laterality: right Lung location: upper lobe of lung Qualified Code(s): J1 8.1 - Lobar pneumonia, unspecified organism (2) COPD exacerbation Current Visit: Yes Status: Acute Assessment and plan: 80 pack year tobacco use, quit smoking a few years ago. Was on oxygen in the past but had it taken away due to non compliance. Has extensive history of baseline shortness of breath with minimal exertion that has increased. CXR significant for bronchitis. Chest CTA showed evidence of PNA in R lung. Plan: - scheduled DuoNebs - Switched IV to oral steroids. Day 4 of 5 of steroid treatment. - suplemental O2. (3) Acute and chronic respiratory failure with hypoxia Current Visit: Yes Status: Acute Assessment and plan: Acute on chronic resiratory failure with hypoxia secondary to PNA in setting of COPD with exacerbation. Requiring 3.5L oxygen by NC, maintaining adequate SpO2 low 90's. Plan: - Awaiting 6 minute walk test for O2 qualification. - Continue supplemental oxygen, continue scheduled duonebs. (4) Hypertension Current Visit: Yes Status: Acute Assessment and plan: Controlled. Plan: - C/W lisinopril. Qualifiers: Hypertension type: essential hypertension Qualified Code(s): I10 - Essential (primary) hypertension (5) DVT prophylaxis Current Visit: Yes Status: Acute Assessment and plan: - Heparin SQ. - Subjective Interval history: When seen today patient was resting comfortably in his chair. He denied any fever, cough, or wheezing. Denied any chest pain or shortness of breath. Denied any abdominal pain. Denied any nausea or vomiting. - Constitutional Vitals: Temp Pulse Resp BP Pulse Ox 98.0 F 85 16 130/88 92 09/23/18 03:44 09/23/18 03:44 09/23/18 07:32 09/23/18 03:44 09/23/18 07:32 General appearance: Present: A&O X 3, no acute distress, answers questions appropriately Exam: GENERAL APPEARANCE: Well developed, well nourished, alert and cooperative, and appears to be in no acute distress. HEAD: normocephalic. EYES: vision is grossly intact. EARS: hearing grossly intact. NOSE: No nasal discharge. THROAT: Oral cavity and pharynx normal. No inflammation, swelling, exudate, or lesions. NECK: Neck supple, non-tender without lymphadenopathy, masses or thyromegaly. CARDIAC: Normal S1 and S2. No S3, S4 or murmurs. Rhythm is regular. There is no peripheral edema, cyanosis or pallor. Extremities are warm and well perfused. Capillary refill is less than 2 seconds. No carotid bruits. LUNGS: Clear to auscultation and percussion without rales, rhonchi, wheezing or diminished breath sounds. ABDOMEN: Positive bowel sounds. Soft, nondistended, nontender. No guarding or rebound. No masses. MUSKULOSKELETAL: Adequately aligned spine. ROM intact spine and extremities. No joint erythema or tenderness. Normal muscular development. BACK: Examination of the spine reveals normal gait and posture, no spinal deformity, symmetry of spinal muscles, without tenderness, decreased range of motion or muscular spasm. EXTREMITIES: No significant deformity or joint abnormality. No edema. Peripheral pulses intact. No varicosities. LOWER EXTREMITY: Examination of both feet reveals all toes to be normal in size and symmetry, normal range of motion, normal sensation with distal capillary filling of less than 2 seconds without tenderness, swelling, discoloration, nodules, weakness or deformity. SKIN: Skin normal color, texture and turgor with no lesions or eruptions. PSYCHIATRIC: The mental examination revealed the patient was oriented to person, place, and time. Internal Medicine: Result - Labs CBC & Chem 7: 09/23/18 05:54 09/23/18 05:54 Labs: Short CBC 09/23/18 Range/Units 05:54 WBC 12.5 H (4.3-11.1) K/mcL Hgb 12.4 L (12.9-16.9) g/dL Hct 38.3 (37.5-50.1) % Plt Count 474 H (140-400) K/mcL Neutrophils # 9.9 H (1.6-8.9) K/mcL BMP 09/23/18 05:54 Sodium 143 Potassium 4.7 Chloride 100 Carbon Dioxide 37 H BUN 34 H Creatinine 0.72 Glucose 100 Calcium 9.5 - ABG Interpretation ABG results: PT/INR, D-dimer 1146 ng/mLFEU (0-500) H 09/20/18 14:11
[2018-09-23] MEDS: levoFLOXacin 750 MG TABLET PO SCH (09:43)
[2018-09-23] MEDS: Lisinopril 20 MG TABLET PO SCH (09:43)
[2018-09-23] MEDS: predniSONE 20 MG TABLET PO SCH (09:44)
[2018-09-24] MEDS: Ipratropium/Albuterol Neb 3 ML IH SCH ×4 (04:03→15:04)
[2018-09-24] MEDS: *HR* Heparin 5,000 UNIT/ML VIAL SQ SCH (06:07)
[2018-09-24 06:26] LABS: Hematocrit 41.3 % (37.5-50.1); Hemoglobin 13.4 g/dL (12.9-16.9); Mean Corpuscular HGB Conc 32.4 g/dL (31.6-35.5); Mean Corpuscular Hemoglobin 31.6 pg (28.0-33.3); Mean Corpuscular Volume 97.4 fL (83.0-100.0); Mean Platelet Volume 9.3 fL (9.4-12.4); Platelet Count 538 K/mcL (140-400); Red Blood Count 4.24 M/mcL (4.19-5.50); Red Cell Distribution Width 15.8 % (11.5-14.5); White Blood Count 10.1 K/mcL (4.3-11.1)
[2018-09-24] MEDS: predniSONE 20 MG TABLET PO SCH (08:33)
[2018-09-24] MEDS: Lisinopril 20 MG TABLET PO SCH (08:34)
[2018-09-24] MEDS: levoFLOXacin 750 MG TABLET PO SCH (08:34)
--- NOTE | 2018-09-24 10:12 | Discharge Summary ---
<Sina Mendez - Last Filed: 09/24/18 13:14> Orders not resulted at time of discharge: Pending orders 09/20/18 10:16 Culture,Blood [BC] Stat 09/20/18 16:28 Streptococcus A Rapid Test [RM] Stat 09/22/18 20:24 Culture,Sputum with Gram Stain [RM] Routine Date of Encounter: 09/24/18 Time of Encounter: 08:50 - Discharge Diagnosis (1) CAP (community acquired pneumonia) Priority: Primary Status: Acute Qualifiers: Laterality: right Lung location: upper lobe of lung Qualified Code(s): J18.1 - Lobar pneumonia, unspecified organism (2) COPD exacerbation Priority: Primary Status: Acute (3) Acute and chronic respiratory failure with hypoxia Priority: Primary Status: Acute (4) Hypertension Priority: Secondary Status: Acute Qualifiers: Hypertension type: essential hypertension Qualified Code(s): I10 - Essential (primary) hypertension Hospital course: Mr. Trejo is a 72 year old male with a PMH of HTN that presented on 09/20/18 for SOB. Patient does not have a family doctor and is non-compliant with seeing one. He used to be on home oxygen but had it taken away by medicare due to noncompliance with it. He has 80 pack year smoking history and quit about 3 years ago. He was never diagnosed with COPD in the past, however, because he never goes to the doctor. Patient has baseline shortness of breath with minimal exertion that is present all the time. Over the past week, his shortness of breath has increased more than normal. His lives in a [place] [facility] permanently for [facility] and was recently diagnosed with pneumonia. He recently did go to visit his in the [place] [facility]. He states that he was checking his oxygen saturations at home and it was high 80s-low 90s. Upon arrival to the ED, patient was noted to have borderline leukocytosis with a WBC of 12.6. Troponins were negative. UA was negative for infection. Vital signs were stable with on O2 saturation of 93. Chest x-ray showed possible bronchitis however chest CTA showed PNA in the RUL and the RLL. No PE was found. Blood cultures were taken and he was subsequently started on azithromycin and rocephin. Antibiotics were then changed to levaquin for better coverage. Patient was also started on IV steroids for COPD exacerbation, later transitioned to PO steroids. Patient's WBC count has been steadily trending down and he has been afebrile. Blood cultures have not shown any growth to date. He has completed 5 days of IV antibiotics and 5 days of steroids. Patient will be discharged to SNF. He will need ot follow- up with a PCP in the next 3-5 days. Warned patient that if he experiences any fever, chest pain, SOB, or wheezing to notify his PCP immediately or report to the ER. - Time Spent with Patient Total time spent providing and/or coordinating discharge services: Time spent: Greater than 30 minutes - Discharge Medications Prescriptions: Continued Lisinopril [Zestril] 20 mg PO QAM Multivit-Min/FA/Lycopen/Lutein [Senior Tabs] 1 tab PO DAILY Ascorbate Calcium [Vitamin C] 500 mg PO DAILY Vitamin E (Dl,Tocopheryl Acet) [Vitamin E] 400 unit PO DAILY Naproxen Sodium [Aleve] 440 mg PO QAM Home Medications: Ascorbate Calcium [Vitamin C] 500 mg PO DAILY 09/20/18 [History] Lisinopril [Zestril] 20 mg PO QAM 09/20/18 [History] Multivit-Min/FA/Lycopen/Lutein [Senior Tabs] 1 tab PO DAILY 09/20/18 [History] Naproxen Sodium [Aleve] 440 mg PO QAM 09/20/18 [History] Vitamin E (Dl,Tocopheryl Acet) [Vitamin E] 400 unit PO DAILY 09/20/18 [History] Allergies/Adverse Reactions: Allergy/AdvReac Type Severity Reaction Status Date / Time No Known Allergies Allergy Verified 09/20/18 14:26 Date of admission: 09/21/18 07:19 Primary care physician: Tatiana Ward CNP Consults: 09/21/18 08:37 Consult to Nurse Navigator [CONS] Routine Comment: copd, pna 09/21/18 18:42 Consult to Occupational Therapy [CONS] Routine Comment: Evaluate, develop and implement POC Reason for Consult: eval and treat Does patient have active BEDREST order?: No Is patient medically & hemodynamically stable?: Yes Consult to Physical Therapy [CONS] Routine Comment: Evaluate, develop and implement POC Reason for Consult: eval and treat Does patient have active BEDREST order?: No Is patient medically & hemodynamically stable?: Yes Discharging clinician: Sina Mendez Anticipated date of discharge: 09/24/18 - Constitutional Vitals: Temp Pulse Resp BP Pulse Ox 97.7 F 103 16 112/75 91 09/24/18 07:46 09/24/18 07:46 09/24/18 07:46 09/24/18 07:46 09/24/18 08:42 General appearance: Present: A&O X 3, no acute distress, answers questions appropriately Exam: GENERAL APPEARANCE: Well developed, well nourished, alert and cooperative, and appears to be in no acute distress. HEAD: normocephalic. EYES: vision is grossly intact. EARS: hearing grossly intact. NOSE: No nasal discharge. THROAT: Oral cavity and pharynx normal. No inflammation, swelling, exudate, or lesions. NECK: Neck supple, non-tender without lymphadenopathy, masses or thyromegaly. CARDIAC: Normal S1 and S2. No S3, S4 or murmurs. Rhythm is regular. There is no peripheral edema, cyanosis or pallor. Extremities are warm and well perfused. Capillary refill is less than 2 seconds. No carotid bruits. LUNGS: Clear to auscultation and percussion without rales, rhonchi, wheezing or diminished breath sounds. ABDOMEN: Positive bowel sounds. Soft, nondistended, nontender. No guarding or rebound. No masses. MUSKULOSKELETAL: Adequately aligned spine. ROM intact spine and extremities. No joint erythema or tenderness. Normal muscular development. BACK: Examination of the spine reveals normal gait and posture, no spinal deformity, symmetry of spinal muscles, without tenderness, decreased range of motion or muscular spasm. EXTREMITIES: No significant deformity or joint abnormality. No edema. Peripheral pulses intact. No varicosities. LOWER EXTREMITY: Examination of both feet reveals all toes to be normal in size and symmetry, normal range of motion, normal sensation with distal capillary filling of less than 2 seconds without tenderness, swelling, discoloration, nodules, weakness or deformity. SKIN: Skin normal color, texture and turgor with no lesions or eruptions. PSYCHIATRIC: The mental examination revealed the patient was oriented to person, place, and time. - Patient Status Disposition: Transfer SNF Condition: Good Functional capacity at discharge: uses cane/walker Overall status at discharge: patient is progressing back to baseline - Discharge Instructions Instructions: Chronic Obstructive Pulmonary Disease (DC), Pneumonia (DC) Follow Up With: Tatiana Ward CNP [Primary Care Provider] - - Diet and Activity Activity: as per physical therapy Diet: low salt diet <Peter Nuñez - Last Filed: 09/24/18 14:16> Orders not resulted at time of discharge: Pending orders 09/20/18 10:16 Culture,Blood [BC] Stat 09/20/18 16:28 Streptococcus A Rapid Test [RM] Stat 09/22/18 20:24 Culture,Sputum with Gram Stain [RM] Routine Date of Encounter: 09/24/18 Hospital course: Mr. Trejo is a 72 year old male - Time Spent with Patient Total time spent providing and/or coordinating discharge services: Date of admission: 09/21/18 07:19 Primary care physician: Tatiana Ward CNP Consults: 09/21/18 08:37 Consult to Nurse Navigator [CONS] Routine Comment: copd, pna 09/21/18 18:42 Consult to Occupational Therapy [CONS] Routine Comment: Evaluate, develop and implement POC Reason for Consult: eval and treat Does patient have active BEDREST order?: No Is patient medically & hemodynamically stable?: Yes Consult to Physical Therapy [CONS] Routine Comment: Evaluate, develop and implement POC Reason for Consult: eval and treat Does patient have active BEDREST order?: No Is patient medically & hemodynamically stable?: Yes - Constitutional Vitals: Temp Pulse Resp BP Pulse Ox 97.8 F 112 17 94/62 93 09/24/18 11:30 09/24/18 11:30 09/24/18 11:30 09/24/18 11:30 09/24/18 11:30 - Attending Attestation I examined this patient and my medical decision-making was reviewed with the Resident Physician. I agree with the documented findings, disposition and treatment plan as described except to the extent set forth below. Patient seen and examined at bedside. Patient states that his breathing feels better, he denies any shortness of breath. He does report a heaviness feeling in his hands and feet bilaterally with some numbness. He states this is new since admission. On exam lungs are diminished bilaterally but no rales, wheezes appreciated. Strength is 5 out of 5 in the upper extremities and lower extremities bilaterally. Sensation is mildly diminished. Acute respiratory failure with hypoxia: Patient does not require oxygen at home. Continue oxygen supplementation and wean down as tolerated. Seems to be tolerating this well. Pneumonia: Treating for community-acquired pneumonia, appears to be covering well, patient completed 5 days of antibiotic therapy today. COPD exacerbation: Patient completed 5 days of steroid therapy today. Extremity numbness and tingling: Overall improving, likely due to medication which should improve now that he is off antibiotics and steroids. Patient is stable for discharge to ECF. Time spent on discharge: 35 minutes.
[2018-09-24 11:33] VITALS: BP 94/62
--- NOTE | 2018-09-24 16:17 | Physician Discharge Referral ---
[facility] Referral Info [facility] Provider in Charge after Transfer: PCP Institutional Level of Care: Skilled - Diagnosis (1) CAP (community acquired pneumonia) Priority: Primary Status: Acute (2) COPD exacerbation Priority: Primary Status: Acute (3) Acute and chronic respiratory failure with hypoxia Priority: Primary Status: Acute (4) Hypertension Priority: Secondary Status: Acute - Transfer Medications Home Medications: Ascorbate Calcium [Vitamin C] 500 mg PO DAILY 09/20/18 [History] Lisinopril [Zestril] 20 mg PO QAM 09/20/18 [History] Multivit-Min/FA/Lycopen/Lutein [Senior Tabs] 1 tab PO DAILY 09/20/18 [History] Naproxen Sodium [Aleve] 440 mg PO QAM 09/20/18 [History] Vitamin E (Dl,Tocopheryl Acet) [Vitamin E] 400 unit PO DAILY 09/20/18 [History] Allergies/Adverse Reactions: Allergy/AdvReac Type Severity Reaction Status Date / Time No Known Allergies Allergy Verified 09/20/18 14:26 - Respiratory Orders Oxygen / L per min (5 L) Smoking Cessation: Smoking cessation has been advised. For more information, call the [place] [employer] Quit Line at 8-280-EQTW-NOW. - Ancillary Orders May use pressure relief devices daily prn, May go on BRANDON w/family/respon libertarian w/meds at nurse discretion PRN, May consult with Dentist, Driver Education Instructor, Traffic Survey Technician PRN - Advance Directives Code Status: Full Code - Mobility Orders Ambulate - Rehabiliation Orders Rehab Orders: Evaluation for Physical Therapy, Evaluation for Occupational Therapy - Treatments Skin tear care topically daily PRN per policy, May check for fecal impaction rectally daily PRN, Fleet enema rectally every other day PRN cleansing purposes - Diet Orders Cardiac CERTIFICATION: I certify that the transfer of the above named patient to an Extended Care Facility is necessary for the continuing treatment of the diagnosis listed. The above information is true and accurate reflection of patient's current condition. Confidential - Redisclosure prohibited without a patient's written consent.
== END 2018-09-24 16:41 | DRG 193 ==
LOC: 3ANU 09:35 → EMEROOARM 09:35 → SUATTDRO 13:26 → 3ANU 14:22 → SUATTDRO 09-21 07:19
PROVIDERS: ADMIT Internal Medicine Nephrology; ATTEND Internal Medicine

== ENCOUNTER 2020-10-18 09:13 | Inpatient (IN) ==
[2020-10-18] MEDS ORDERED: CeFAZolin Syr 2,000MG/20 ML 2,000 MG/20 ML SYRINGE IVPB ONE (09:50)
[2020-10-18] MEDS ORDERED: Vancomycin 1,250 MG/262.5 ML IV.SOLN IVPB ONE ×2 (10:00→23:00)
[2020-10-18] MEDS ORDERED: Ringers Solution, Lactated 1,000 ML IVC SCH ×2 (10:00)
[2020-10-18] MEDS ORDERED: NiCARdipine 2.5 MG/10 ML Syringe IVPB ONE (10:13)
[2020-10-18] MEDS ORDERED: Norepinephrine 4 MG/254 ML IV.SOLN IVC SCH (10:15)
[2020-10-18] MEDS ORDERED: *HR* Midazolam HCl 5 MG/5 ML VIAL IVP ONE ×2 (10:21→14:21)
[2020-10-18] MEDS ORDERED: *HR* FentaNYL (PF) 250 MCG/5 ML VIAL ONE ×2 (10:21→13:17)
[2020-10-18] MEDS ORDERED: *HR* Heparin 5,000 UNIT/ML VIAL ONE (10:22)
[2020-10-18] MEDS ORDERED: *HR* Rocuronium Bromide 50 MG/5 ML VIAL ONE ×3 (10:22→14:16)
[2020-10-18] MEDS ORDERED: *HR* Etomidate 20 MG/10 ML AMPUL IVP ONE (10:22)
[2020-10-18] MEDS ORDERED: *HR* Succinylcholine 200 MG/10 ML VIAL IVP ONE (10:49)
[2020-10-18] MEDS ORDERED: Lidocaine -MPF 2% 2 ML VIAL ONE (10:57)
[2020-10-18] MEDS ORDERED: Vancomycin 1,000 MG, Sodium Chloride IRRigation 1,000 ML IR ONE (11:20)
[2020-10-18] MEDS ORDERED: *HR* HYDROmorphone PF 0.5 MG/0.5 ML SYRINGE IVP PRN (12:00)
[2020-10-18] MEDS ORDERED: *HR* FentaNYL (PF) 100 MCG/2 ML VIAL IVP PRN (12:00)
[2020-10-18] MEDS ORDERED: Ondansetron 4 MG/2 ML VIAL IVP PRN ×2 (12:00→17:36)
[2020-10-18] MEDS ORDERED: Sugammadex Sodium 200 MG/2 ML VIAL IV ONE (15:18)
[2020-10-18] MEDS ORDERED: Ondansetron 4 MG/2 ML VIAL ONE (15:18)
[2020-10-18] MEDS ORDERED: *HR* HYDROMORPHONE 2 MG/ML VIAL ONE (15:27)
[2020-10-18] MEDS ORDERED: Acetaminophen IV 1,000 MG/100 ML BAG IVPB ONE (15:31)
[2020-10-18] MEDS ORDERED: *HR* Propofol 200 MG/20 ML VIAL IVP ONE (16:05)
[2020-10-18] MEDS ORDERED: Vancomycin 1,000 MG VIAL ONE (16:45)
[2020-10-18] MEDS ORDERED: Heparin 1,000 UNITS/500 mL 1,000 ML ONE (16:45)
[2020-10-18] MEDS ORDERED: *HR* Phenylephrine 10 MG/ML VIAL IVC ONE (17:10)
[2020-10-18] MEDS ORDERED: Heparin 1,000 UNITS/500 mL IV.SOLN IR ONE (17:10)
[2020-10-18] MEDS ORDERED: *HR* Labetalol 20 MG/4 ML SYRINGE IVP PRN (17:36)
[2020-10-18] MEDS: *HR* Metoprolol 5 MG/5 ML VIAL IVP SCH ×2 (17:52→18:45)
[2020-10-18] MEDS: 0.9 % Sodium Chloride 1,000 ML IVC SCH (18:08)
[2020-10-18 18:41] LABS: VBG Ionized Calcium 1.18 mmol/L (1.15-1.35)
[2020-10-18 18:52] LABS: INR 1.2; Prothrombin Time 14.1 Seconds (9.4-12.1)
[2020-10-18 18:55] LABS: Activated Partial Thrombo Time 24.4 Seconds (26.0-36.0)
[2020-10-18] MEDS: Budesonide/Formoterol 80/4.5 1 PUFF INH IH SCH (20:15)
[2020-10-18] MEDS: CeFAZolin 2 GM/120 ML BAG IVPB SCH (20:33)
[2020-10-18] MEDS ORDERED: Naloxone 0.4 MG/ML INJ IVP PRN (23:30)
[2020-10-19] MEDS: *HR* Metoprolol 5 MG/5 ML VIAL IVP SCH ×4 (00:44→17:27)
[2020-10-19 02:25] LABS: Basophils % 0.1 %; Hematocrit 38.2 % (37.5-50.1); Hemoglobin 12.2 g/dL (12.9-16.9); Immature Granulocytes % 0.4 % (0-4); Lymphocytes # 0.8 K/mcL (0.6-4.6); Lymphocytes % 5.2 %; Mean Corpuscular HGB Conc 31.9 g/dL (31.6-35.5); Mean Corpuscular Hemoglobin 30.4 pg (28.0-33.3); Mean Corpuscular Volume 95.3 fL (83.0-100.0); Mean Platelet Volume 9.9 fL (9.4-12.4); Monocytes # 0.8 K/mcL (0.0-1.3); Monocytes % 5.2 %; Neutrophils # 14.3 K/mcL (1.6-8.9); Platelet Count 206 K/mcL (140-400); Red Blood Count 4.01 M/mcL (4.19-5.50); Red Cell Distribution Width 15.8 % (11.5-14.5); Segmented Neutrophils % 89.1 %; White Blood Count 16.1 K/mcL (4.3-11.1)
[2020-10-19 02:44] LABS: BUN/Creatinine Ratio 26 (6-26); Blood Urea Nitrogen 21 mg/dL (8-23); Carbon Dioxide 25 mEq/L (23-29); Chloride 106 mEq/L (98-107); Glucose 124 mg/dL (70-105); Osmolality,Calculated 292 (280-300); Sodium 139 mEq/L (136-145); eGFR For African Americans > 60 (> 60); eGFR For Non-African Americans > 60 (> 60)
[2020-10-19] MEDS ORDERED: 0.9 % Sodium Chloride 500 ML IV ONE (03:29)
[2020-10-19] MEDS: CeFAZolin 2 GM/120 ML BAG IVPB SCH (04:12)
[2020-10-19] MEDS: 0.9 % Sodium Chloride 1,000 ML IVC SCH (04:34)
[2020-10-19] MEDS ORDERED: *HR* Heparin 5,000 UNIT/ML VIAL SQ SCH (06:00)
[2020-10-19] MEDS: Budesonide/Formoterol 80/4.5 1 PUFF INH IH SCH ×2 (07:53→20:13)
[2020-10-19] MEDS ORDERED: Calcium Gluconate 1gm/50mL 1 GM/50 ML BAG IVPB PRN (10:59)
[2020-10-19 14:09] LABS: Magnesium 2.1 mg/dL (1.6-2.6); Phosphorous 2.2 mg/dL (2.7-4.5)
[2020-10-19] MEDS: *HR* Heparin 5,000 UNIT/ML VIAL SQ SCH (17:27)
[2020-10-20] MEDS: *HR* Metoprolol 5 MG/5 ML VIAL IVP SCH ×4 (00:28→18:47)
[2020-10-20 04:46] LABS: Hematocrit 34.5 % (37.5-50.1); Mean Corpuscular HGB Conc 31.9 g/dL (31.6-35.5); Mean Corpuscular Hemoglobin 30.3 pg (28.0-33.3); Mean Platelet Volume 9.7 fL (9.4-12.4); Platelet Count 195 K/mcL (140-400); Red Blood Count 3.63 M/mcL (4.19-5.50); Red Cell Distribution Width 16.3 % (11.5-14.5); White Blood Count 14.7 K/mcL (4.3-11.1)
[2020-10-20 05:06] LABS: BUN/Creatinine Ratio 39 (6-26); Blood Urea Nitrogen 25 mg/dL (8-23); Calcium 8.3 mg/dL (8.6-10.3); Carbon Dioxide 28 mEq/L (23-29); Chloride 105 mEq/L (98-107); Glucose 122 mg/dL (70-105); Magnesium 2.2 mg/dL (1.6-2.6); Osmolality,Calculated 298 (280-300); Phosphorous 1.9 mg/dL (2.7-4.5); Potassium 3.9 mEq/L (3.5-5.1); Sodium 141 mEq/L (136-145); eGFR For African Americans > 60 (> 60); eGFR For Non-African Americans > 60 (> 60)
[2020-10-20] MEDS: *HR* Heparin 5,000 UNIT/ML VIAL SQ SCH ×2 (06:12→18:47)
[2020-10-20] MEDS: Budesonide/Formoterol 80/4.5 1 PUFF INH IH SCH ×2 (07:34→22:03)
[2020-10-20] MEDS ORDERED: Furosemide 20 MG/2 ML VIAL IVP ONE (12:23)
[2020-10-20] MEDS ORDERED: Bisacodyl 10 MG RECTAL SUPPOSITORY RC ONE (13:00)
[2020-10-21] MEDS: *HR* Metoprolol 5 MG/5 ML VIAL IVP SCH ×5 (00:07→23:48)
[2020-10-21 03:52] LABS: Hematocrit 33.3 % (37.5-50.1); Hemoglobin 10.7 g/dL (12.9-16.9); Mean Corpuscular HGB Conc 32.1 g/dL (31.6-35.5); Mean Corpuscular Hemoglobin 30.5 pg (28.0-33.3); Mean Corpuscular Volume 94.9 fL (83.0-100.0); Mean Platelet Volume 9.9 fL (9.4-12.4); Platelet Count 207 K/mcL (140-400); Red Blood Count 3.51 M/mcL (4.19-5.50); Red Cell Distribution Width 16.1 % (11.5-14.5); White Blood Count 12.3 K/mcL (4.3-11.1)
[2020-10-21 04:05] LABS: BUN/Creatinine Ratio 43 (6-26); Blood Urea Nitrogen 26 mg/dL (8-23); Calcium 8.4 mg/dL (8.6-10.3); Carbon Dioxide 31 mEq/L (23-29); Chloride 103 mEq/L (98-107); Glucose 115 mg/dL (70-105); Magnesium 2.1 mg/dL (1.6-2.6); Osmolality,Calculated 296 (280-300); Phosphorous 1.4 mg/dL (2.7-4.5); Potassium 3.7 mEq/L (3.5-5.1); Sodium 140 mEq/L (136-145); eGFR For African Americans > 60 (> 60); eGFR For Non-African Americans > 60 (> 60)
[2020-10-21] MEDS: *HR* Heparin 5,000 UNIT/ML VIAL SQ SCH ×2 (05:43→18:09)
[2020-10-21] MEDS: Budesonide/Formoterol 80/4.5 1 PUFF INH IH SCH ×2 (08:15→22:41)
[2020-10-21] MEDS ORDERED: *HR* OxyCODONE Immed Rel 5 MG TABLET PO PRN (16:10)
[2020-10-21] MEDS ORDERED: *HR* HYDROcodone/Acet 5/325 mg TABLET PO PRN ×2 (16:10)
[2020-10-21] MEDS ORDERED: Acetaminophen 325 MG TABLET PO PRN ×2 (16:10)
[2020-10-21] MEDS: Gabapentin 100 MG CAPSULE PO SCH (20:41)
[2020-10-21] MEDS: *HR* OxyCODONE Immed Rel 5 MG TABLET PO PRN (20:41)
[2020-10-22 03:03] LABS: Basophils % 0.4 %; Eosinophils # 0.3 K/mcL (0.0-0.6); Eosinophils % 3.5 %; Hematocrit 32.4 % (37.5-50.1); Hemoglobin 10.6 g/dL (12.9-16.9); Immature Granulocytes % 0.3 % (0-4); Lymphocytes # 1.6 K/mcL (0.6-4.6); Lymphocytes % 17.3 %; Mean Corpuscular HGB Conc 32.7 g/dL (31.6-35.5); Mean Corpuscular Hemoglobin 30.7 pg (28.0-33.3); Mean Corpuscular Volume 93.9 fL (83.0-100.0); Mean Platelet Volume 9.9 fL (9.4-12.4); Monocytes # 1.2 K/mcL (0.0-1.3); Monocytes % 13.4 %; Neutrophils # 5.9 K/mcL (1.6-8.9); Platelet Count 237 K/mcL (140-400); Red Blood Count 3.45 M/mcL (4.19-5.50); Red Cell Distribution Width 16.2 % (11.5-14.5); Segmented Neutrophils % 65.1 %; White Blood Count 9.1 K/mcL (4.3-11.1)
[2020-10-22 03:26] LABS: BUN/Creatinine Ratio 39 (6-26); Blood Urea Nitrogen 24 mg/dL (8-23); Calcium 8.3 mg/dL (8.6-10.3); Carbon Dioxide 28 mEq/L (23-29); Chloride 104 mEq/L (98-107); Glucose 109 mg/dL (70-105); Osmolality,Calculated 291 (280-300); Phosphorous 1.7 mg/dL (2.7-4.5); Sodium 138 mEq/L (136-145); eGFR For African Americans > 60 (> 60); eGFR For Non-African Americans > 60 (> 60)
[2020-10-22] MEDS: *HR* Metoprolol 5 MG/5 ML VIAL IVP SCH ×3 (05:36→18:37)
[2020-10-22] MEDS: *HR* Heparin 5,000 UNIT/ML VIAL SQ SCH ×2 (06:27→18:37)
[2020-10-22] MEDS: lisinopriL 20 MG TABLET PO SCH (07:38)
[2020-10-22] MEDS: Budesonide/Formoterol 80/4.5 1 PUFF INH IH SCH ×2 (08:01→21:55)
[2020-10-22] MEDS: *HR* OxyCODONE Immed Rel 5 MG TABLET PO PRN (08:56)
[2020-10-22] MEDS: Gabapentin 100 MG CAPSULE PO SCH (20:58)
[2020-10-23] MEDS: *HR* Metoprolol 5 MG/5 ML VIAL IVP SCH ×3 (00:55→12:49)
[2020-10-23] MEDS: *HR* Heparin 5,000 UNIT/ML VIAL SQ SCH (06:23)
[2020-10-23] MEDS: Budesonide/Formoterol 80/4.5 1 PUFF INH IH SCH (08:23)
[2020-10-23] MEDS: lisinopriL 20 MG TABLET PO SCH (08:31)
[2020-10-23 15:02] LABS: Adenovirus Not Detected (Not Detect); Bordetella Pertussis Not Detected (Not Detect); Chlamydophila pneumoniae Not Detected (Not Detect); Coronavirus 229E Not Detected (Not Detect); Coronavirus HKU1 Not Detected (Not Detect); Coronavirus NL63 Not Detected (Not Detect); Coronavirus OC43 Not Detected (Not Detect); Human Metapneumovirus Not Detected (Not Detect); Human Rhinovirus/Enterovirus Not Detected (Not Detect); Influenza A Subtype 2009 H1 Not Detected (Not Detect); Influenza B Not Detected (Not Detect); Mycoplasma pneumoniae Not Detected (Not Detect); Parainfluenza Virus 1 Not Detected (Not Detect); Parainfluenza Virus 2 Not Detected (Not Detect); Parainfluenza Virus 3 Not Detected (Not Detect); Parainfluenza Virus 4 Not Detected (Not Detect); Respiratory Syncytial Virus Not Detected (Not Detect); SARS-CoV-2 Not Detected (Not Detect)
[2020-10-23 15:58] VITALS: BP 135/94; PULSE 96; TEMP 98.8; O2SAT 93
== END 2020-10-23 17:44 | DRG 269 ==
LOC: SAMDAY 09:13 → 2NNU 17:35
PROVIDERS: ADMIT Surgery; ATTEND Surgery